=== PATIENT | female | born 1950 | race Two or more races ===

== ENCOUNTER 2024-10-07 14:47 | Emergency (ER) | payer OTHER ==
[~2024-10-07] VITALS: Ht 160 cm; Wt 72.6 kg
[2024-10-07] MEDS ORDERED: PRAVASTATIN SOD40 MG PO (15:09)
[2024-10-07] MEDS ORDERED: COZAAR100 MG PO (15:09)
[2024-10-07 15:10] VITALS: BP 150/60; O2SAT 98
[2024-10-07] MEDS ORDERED: LEVALBUTEROL HCL 1.25 MG/3 ML SOLUTION IH SCH (15:45)
[2024-10-07] MEDS ORDERED: METHYLPREDNISOLONE SOD SUCC 125 MG VIAL IV ONE (15:45)
[2024-10-07] MEDS ORDERED: IPRATROPIUM BROMIDE 0.5 MG/2.5 ML AMPUL.NEB IH SCH (15:45)
[2024-10-07] MEDS ORDERED: GUAIFEN/DEXTROMETHORPHAN/PE 10 ML BLIST.PACK PO ONE (15:45)
[2024-10-07 16:13] LABS: BASO % 1.0 % (0.1-1.2); EOS # 0.35 (0.04-0.54); EOS % 4.5 % (0.7-7.0); LYMPH # 2.08 (1.18-3.74); LYMPH % 26.9 % (19.3-53.1); MEAN PLATELET VOLUME 9.70 fl (9.4-12.4); MONO # 0.77 (0.24-0.82); MONO % 9.9 % (4.7-12.5); NEUT # 4.45 (1.56-6.13); NEUT % 57.6 % (34.0-71.1); RED CELL DISTRIBUTION WIDTH 13.6 % (11.6-14.4)
[2024-10-07 17:02] LABS: COVID-19 AG POSITIVE (NEGATIVE)
[2024-10-07] MEDS ORDERED: PAXLOVID 300/11 EACH PO (17:48)
[2024-10-07] MEDS ORDERED: XOPENEX CO1.25 MG/0. IH (17:48)
[2024-10-07] MEDS ORDERED: TUSNEL LIQUID178 ML PO (17:48)
== END 2024-10-07 18:17 | disposition home or self-care (01) ==
LOC: ER 15:11
PROVIDERS: Preventive Medicine Public Health & General Preventive Medicine
DX: U07.1 COVID-19 (principal); J10.1 Influenza due to other identified influenza virus with other respiratory manifestations; J45.901 Unspecified asthma with (acute) exacerbation; R05.9 Cough, unspecified; I10 Essential (primary) hypertension; Z88.0 Allergy status to penicillin
CPT/HCPCS: 36415; 71046; 99283; J3490